=== PATIENT | male | born 1935 | race Caucasian/White ===

== ENCOUNTER 2017-04-14 12:36 | Outpatient (CLI) | payer MEDICARE ==
[2017-04-14 14:15] LABS: #Eosinphils 0.1 thou/uL (0.0-0.7); #Lymphocytes 1.8 thou/uL (1.20-3.40); #Monocytes 0.7 thou/uL (0.11-0.59); #Neutrophils 7.5 thou/uL (1.40-6.50); %Basophils 0.2 % (0.0-1.0); %Eosinophils 0.7 % (0.0-10.0); %Monocytes 6.6 % (0.0-10.0); Mean Platelet Volume 6.9 fL (7.4-10.4); Red Blood Cell (RBC) Count 4.59 mill/uL (4.70-6.10)
[2017-04-14 14:21] LABS: PTT 31.2 SEC (22.9-36.1); Prothrombin Time 14.2 SEC (12.0-14.7)
[2017-04-14 14:24] LABS: Bilirubin Negative (Negative); Blood, Urine Negative (Negative); Glucose, Urine (Dipstick) Negative (Negative); Ketone, Urine Negative (Negative); Nitrite Negative (Negative); Protein, Urine (Dipstick) Negative (Neg-Trace); Urobilinogen 0.2 mg/dL (0.2-1.0)
[2017-04-14 14:30] LABS: Bacteria/HPF None Seen HPF (None Seen); Hyaline Casts/LPF 0-3 HYALINE CAST LPF (0-3 Hyaline); Squamous Epithelial None Seen HPF (0-3); WBC/HPF 0-3 HPF (0-3)
[2017-04-14 14:36] LABS: Anion Gap 11 mmol/L (10-20); BUN (Urea Nitrogen) 22 mg/dL (8.4-25.7); Calc. Creatinine Clearance 0 mL/min (70-130); Calcium 9.5 mg/dL (7.8-10.44); Carbon Dioxide 25 mmol/L (23-31); Chloride 107 mmol/L (98-107); Estimated GFR-MDRD 87
--- NOTE | 2017-04-16 16:00 | EKG ---
Test Reason : Blood Pressure : / mmHG Vent. Rate : 075 BPM Atrial Rate : 075 BPM P-R Int : 194 ms QRS Dur : 086 ms QT Int : 372 ms P-R-T Axes : 070 050 045 degrees QTc Int : 415 ms Normal sinus rhythm Normal ECG When compared with ECG of 13-OCT-2016 13:30, QRS axis Shifted left T wave inversion no longer evident in Lateral leads Confirmed by DR. Michael BUI ([id number]) on 04/16/2017 4:00:08 PM Referred By: OK Confirmed By:DR. Michael BUI
== END 2017-04-14 12:37 | disposition home or self-care (01) ==
LOC: LABBT 12:36
PROVIDERS: ATTEND Orthopaedic Surgery
DX: Z01.818 Encounter for other preprocedural examination (principal); M17.11 Unilateral primary osteoarthritis, right knee
CPT/HCPCS: 80048; 81001; 85025; 85610; 85730; 86850; 86900; 86901; 87081; 93005; 93010

== ENCOUNTER 2017-09-15 09:39 | Outpatient (CLI) | payer MEDICARE ==
[2017-09-15] MEDS ORDERED: ISOVUE-370 76%-LOCM 1 ML ONE (14:55)
== END 2017-09-15 09:40 | disposition home or self-care (01) ==
LOC: BICCT 09:39
PROVIDERS: ATTEND Internal Medicine Medical Oncology
DX: R59.0 Localized enlarged lymph nodes (principal); K57.30 Diverticulosis of large intestine without perforation or abscess without bleeding; N40.0 Benign prostatic hyperplasia without lower urinary tract symptoms; K63.89 Other specified diseases of intestine
CPT/HCPCS: 74177

== ENCOUNTER 2018-11-15 09:16 | Outpatient (CLI) | payer MEDICARE ==
--- NOTE | 2018-11-15 10:34 | CT ---
EXAM: CT ABDOMEN AND PELVIS HISTORY: Abdominal lymphadenopathy. Localized enlarged lymph nodes. COMPARISON: 09/15/2017, 03/24/2017, 10/02/2016 Procedure: Multiple contiguous axial images were obtained and a CT of the abdomen and pelvis with IV contrast. C oronal reformats were performed. FINDINGS: Lower Chest: Chronic changes Vessels: Atherosclerosis of a nonaneurysmal aorta Heart: Normal size. No significant pericardial fluid Abdomen: Portal vein:Patent Gallbladder: No calcified gallstones. Normal caliber wall. Liver: Stable subcentimeter hypodensities in the left hepatic lobe, too small to further characterize . No enhancing masses in the liver. Pancreas: within normal limits. Spleen: within normal limits. Adrenals: within normal limits. Kidneys: within normal limits. Peritoneum: No ascites or free air, no fluid collection. Bowel: Gastric mucosa, duodenum and multiple caliber small bowel loops are identified. There is mucos al thickening involving the distal ileum and terminal ileum, similar to the previous examination. Visualized colon is unremarkable. Diverticulosis. No evidence of diverticulitis. Mucosal thickening o f the sigmoid colon is felt to be due to inadequate distention. Mesentery and Retroperitoneum: Stable enlarged left periaortic lymph node measuring 2.3 x 2.3 cm (mia suring 2.2 x 2.5 cm in September 2016). Additional lymphadenopathy is not appreciated. Abdominal Wall: within normal limits. Pelvis: Reproductive Organs: Enlarged, heterogeneous prostate gland. Pelvis: within normal limits. Bladder: within normal limits. Bones: Stable fusion changes in the lumbar spine. IMPRESSION: 1. Stable large left periaortic lymph node. Additional lymphadenopathy in the abdomen and pelvis is n ot appreciated. 2. Stable wall thickening of the distal ileum and terminal ileum. 3. Diverticulosis. 4. Enlarged prostate gland. Transcribed Date/Time: 11/15/2018 10:56 AM
== END 2018-11-15 09:17 | disposition home or self-care (01) ==
LOC: BICCT 09:16
PROVIDERS: ATTEND Internal Medicine Medical Oncology
DX: R59.0 Localized enlarged lymph nodes (principal); K57.90 Diverticulosis of intestine, part unspecified, without perforation or abscess without bleeding; N40.0 Benign prostatic hyperplasia without lower urinary tract symptoms; K63.89 Other specified diseases of intestine
CPT/HCPCS: 74177; 82565

== ENCOUNTER 2018-12-27 09:03 | Outpatient (CLI) | payer MEDICARE ==
--- NOTE | 2018-12-27 11:39 | CT ---
CT LUMBAR SPINE WITHOUT CONTRAST: INDICATIONS: History of low back pain. COMPARISON: Lumbar spine radiograph, dated 03/21/2013. FINDINGS: There is an axial lift system extending from S1 through L3, with posterolateral spinal instrumentatio n spanning L3 through S1. There is retrolisthesis of L2 and L3, which is stable. There is advanced disk degenerative and facet osteoarthritic change at L1-L2 and at L2-L3. There is at least solid oss eous incorporation of the posterolateral bone graft from L3 through L5. There is suspected bone brid ging at L4-L5, within the interbody space. There is some bone bridging within the lateral aspect of L3-L4. No definite bridging bone is evident at L5-S1. There is some vacuum gas within the anterior aspect of L5-S1, likely related to some motion. There is vacuum gas phenomenon at L2-L3 and at L1-L2 . No acute fracture is evident. There is levoscoliosis centered at L2-L3. The visualized retroperiton eum demonstrates an enlarged left periaortic lymph node, measuring 2.3 cm, which is better seen on a comparison CT from 11/15/2018. There is scattered colonic diverticula. At L5-S1, there is moderate bilateral osseous neural foraminal narrowing due to disk osteophyte compl ex and facet hypertrophy. At L4-L5, there is no appreciable osseous central canal or neural foraminal narrowing. At L3-L4, there is disk osteophyte complex and facet osteoarthrosis but without appreciable osseous c entral canal or neural foraminal narrowing. At L2-L3, there is facet hypertrophy and disk osteophyte complex, inducing at least moderate osseous central canal narrowing and moderate right osseous neural foraminal narrowing. At L1-L2, there is a disk osteophyte complex with facet hypertrophy, inducing at least mild osseous c entral canal narrowing and mild left osseous neural foraminal narrowing. At T12-L1, there is no appreciable osseous central canal or neural foraminal narrowing. IMPRESSION: 1. Prominent postoperative lumbar interbody fixation from L3 through S1, including an axial lift and posterolateral spinal instrumentation. There is evidence of interbody fusion at L3-L4 and at L4-L5. There is no definite solid osseous incorporation of the interbody and posterolateral bone graft at L5-S1. 2. Severe adjacent segment degeneration, particularly at L2-L3, where there is retrolisthesis with m ild to moderate central canal narrowing and moderate left neural foraminal narrowing. 3. Mild central canal narrowing at L1-L2 with mild left neural foraminal narrowing. 4. Stable left paraaortic lymphadenopathy, better detailed on CT abdomen and pelvis dated 11/16/2018 . POS: [facility]
== END 2018-12-27 09:04 | disposition home or self-care (01) ==
LOC: TBSIIMAG 09:03
PROVIDERS: ATTEND Physician Assistant
DX: M54.5 Low back pain (principal); M47.816 Spondylosis without myelopathy or radiculopathy, lumbar region; M43.16 Spondylolisthesis, lumbar region; M48.061 Spinal stenosis, lumbar region without neurogenic claudication; R59.0 Localized enlarged lymph nodes; Z98.1 Arthrodesis status
CPT/HCPCS: 72131

== ENCOUNTER 2019-01-26 09:00 | Outpatient (CLI) | payer MEDICARE ==
--- NOTE | 2019-01-26 15:22 | NM ---
Nuclear medicine [facility]ERT brain SPECT: DATE: 01/26/2019 HISTORY: 83-year-old male with Parkinson's disease. TECHNIQUE: 130 mg of SSKI given by mouth 1 hour prior to injection of radiopharmaceutical. 4.6 mCi of I-123 Ioflupane injected IV. 3 hours later, SPECT images of the brain obtained in axial plane. FINDINGS: There is uptake in the bilateral caudate heads. There is decreased uptake in the putamen bilaterally. IMPRESSION: Evidence for early or mild parkinsonism.
== END 2019-01-26 09:01 | disposition home or self-care (01) ==
LOC: NM 09:00
PROVIDERS: ATTEND Psychiatry & Neurology Neurology
DX: G20 Parkinson's disease (principal)
CPT/HCPCS: 78607; A9584

== ENCOUNTER 2023-01-28 10:43 | Emergency (ER) | payer MEDICARE ==
[~2023-01-28 10:43] MED LIST: Iopamidol-370 76% 500 ML MDV (1 ML CHARGE) ONE
[2023-01-28 12:13] LABS: #Basophils 0.1 thou/uL (0.0-0.2); #Monocytes 0.7 thou/uL (0.11-0.59); #Neutrophils 7.5 thou/uL (1.40-6.50); %Basophils 0.5 % (0.0-1.0); %Eosinophils 0.2 % (0.0-10.0); %Lymphocytes 22.4 % (21.0-51.0); %Monocytes 6.1 % (0.0-10.0); %Neutrophils 70.3 % (42.0-75.0); Hematocrit 42.2 % (42.0-52.0); Hemoglobin 14.4 g/dL (14.0-18.0); Mean Corpuscular HGB CONC 34.1 g/dL (32.0-36.0); Mean Corpuscular Volume 90.9 fl (78.0-98.0); Mean Platelet Volume 9.8 fL (7.4-10.4); Platelet Count 255 10x3/uL (130-400); RBC Distribution Width 13.1 % (11.5-14.5); Red Blood Cell (RBC) Count 4.64 mill/uL (4.70-6.10); White Blood Cell (WBC) Count 10.7 10x3/uL (4.8-10.8)
[2023-01-28 12:38] LABS: ALT (SGPT) Less than 7 U/L (8-55); AST (SGOT) 21 U/L (5-34); Alkaline Phosphatase 73 U/L (40-110); Anion Gap 12 mmol/L (10-20); BUN (Urea Nitrogen) 13 mg/dL (8.4-25.7); Bilirubin, Total 0.6 mg/dL (0.2-1.2); CK (CPK) 68 U/L (30-200); Calc. Creatinine Clearance 0 mL/min (70-130); Calcium 9.5 mg/dL (7.8-10.44); Carbon Dioxide 25 mmol/L (23-31); Chloride 105 mmol/L (98-107); Estimated GFR 84; Globulin 2.6 g/dL (2.4-3.5); Glucose 95 mg/dL (83-110); Protein, Total 6.6 g/dL (5.8-8.1); Sodium 138 mmol/L (136-145)
[2023-01-28 12:41] LABS: Troponin I 0.022 ng/mL (< 0.028)
[2023-01-28 13:53] LABS: Bacteria/HPF None Seen HPF (None Seen); Bilirubin Negative (Negative); Blood, Urine Trace (Negative); CAUTI Indications for Culture Dysuria,urgency,freq; Clarity Clear (Clear); Glucose, Urine (Dipstick) Normal (Negative); Ketone, Urine Negative (Negative); Leukocyte Negative Leu/uL (Negative); Nitrite Negative (Negative); Protein, Urine (Dipstick) Negative (Neg-Trace); Specific Gravity, Urine 1.015 (1.002-1.036); Squamous Epithelial None Seen HPF (0-3); Urine Culture Reflex No No; Urobilinogen Normal mg/dL (Less than 2); WBC/HPF 0-3 HPF (0-3)
== END 2023-01-28 14:30 | disposition home or self-care (01) ==
LOC: ERS 10:43
DX: R11.0 Nausea (principal)
CPT/HCPCS: 36415; 71045; 74177; 80053; 81001; 82550; 83605; 83880; 84484; 85025; 93005; Q9967